=== PATIENT | female | born 1995 | race Caucasian/White ===

== ENCOUNTER 2021-11-28 17:11 | Emergency (ER) | payer OTHER ==
[2021-11-28 17:15] VITALS: BP 120/83; PULSE 84; RESP 18; TEMP 97.6; BMI 30.2
[2021-11-28] MEDS ORDERED: ACETAMINOPHEN 1000 MG/100 ML BAG IVPB ONE (18:10)
[2021-11-28] MEDS ORDERED: ACETAMINOPHEN INJECTION 100 ML IVPB ONE (18:28)
[2021-11-28 19:02] LABS: BASO % 0.5 % (0-2.0); HEMATOCRIT 42.8 % (32.4-45.2); LYMPH % 25.4 % (8-40); MCH 28.3 pg (25.7-33.7); MCHC 32.7 g/dl (32.0-36.0); MEAN CELL VOLUME 86.5 fl (80-96); MEAN PLT VOLUME 9.5 fl (7.5-11.1); MONO % 7.2 % (3.8-10.2); NEUT % 65.9 % (42.8-82.8); PLATELET COUNT 286 10^3/uL (134-434); RBC 4.95 M/mm3 (3.60-5.2); RDW 14.4 % (11.6-15.6); WHITE BLOOD COUNT 9.1 K/mm3 (4.0-10.0)
[2021-11-28 19:09] LABS: INR 1.09 (0.83-1.09); PROTHROMBIN TIME (PATIENT) 12.5 SEC (9.7-13.0)
[2021-11-28 19:12] LABS: ACTIVATED PTT 37.2 SECONDS (25.2-36.5)
[2021-11-28 19:19] LABS: ALBUMIN 4.2 g/dl (3.4-5.0); BLOOD UREA NITROGEN 14.4 mg/dL (7-18); CALCIUM 9.9 mg/dL (8.5-10.1)
[2021-11-28 19:22] LABS: CREATININE 0.7 mg/dL (0.55-1.3)
[2021-11-28 19:24] LABS: BILIRUBIN,TOTAL 0.2 mg/dL (0.2-1); TOT PROT 8.1 g/dl (6.4-8.2)
== END 2021-11-28 20:04 | disposition home or self-care (01) ==
LOC: JER 17:11
PROC: 3E033NZ Introduction of Analgesics, Hypnotics, Sedatives into Peripheral Vein, Percutaneous Approach (ICD-10-PCS; principal; 2021-11-28)
DX: R51.9 Headache, unspecified (principal)
CPT/HCPCS: 36415; 70450-TC; 80053; 83735; 84443; 84703; 85025; 85610; 85730; 99285-25

== ENCOUNTER 2022-03-11 11:11 | Emergency (ER) | payer OTHER ==
[2022-03-11 11:25] VITALS: BP 123/73; PULSE 98; RESP 20; TEMP 97.9; BMI 28.1
== END 2022-03-11 13:45 | disposition left against medical advice (07) ==
LOC: JER 11:11
DX: R19.7 Diarrhea, unspecified (principal); R10.9 Unspecified abdominal pain
CPT/HCPCS: 0241U-QW; 99281-25